=== PATIENT | female | born 1985 | race Caucasian/White ===

== ENCOUNTER 2016-11-17 19:06 | Emergency (ER) | payer OTHER ==
--- OUTSIDE RECORDS SUMMARY | 2016-11-17 19:29 | XMS REPORT | Continuity of Care Document ---
:1985 Author Organization [facility] ([facility]) Address [place] [address] Phone [phone] Care Team Providers Name Role Phone Provider, No-Primary Care Primary Care Provider Unavailable Source Comments This disclosure is being made pursuant to the Care Everywhere program, applicable federal and state laws, and may not contain all informaitonavailable regarding this patient.[facility] ([facility]) Active Allergies and Adverse Reactions No Known Allergies Current Medications Prescription Sig. Disp. Refills Start Date End Date Status ciprofloxacin 500 mg Take 1 Tab by mouth 20 Tab 0 05/27/2014 Active tablet 2 times daily. 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 Height 1.6 m (5' 3") 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 Weight 104.327 kg (230 lb) 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
[2016-11-17] MEDS ORDERED: ONDANSETRON HCL/PF 2 MG/ML VIAL IV ONE (19:35)
[2016-11-17] MEDS ORDERED: KETOROLAC TROMETHAMINE 60 MG/2 ML VIAL IM ONE ×2 (19:35→19:40)
[2016-11-17] MEDS ORDERED: NORMAL SALINE 1,000 ML IV ONE (19:35)
[2016-11-17] MEDS ORDERED: ONDANSETRON HCL/PF 2 MG/ML VIAL ONE (19:40)
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
[2016-11-17 19:54] LABS: Hematocrit 44.1 % (37.0-47.0); Hemoglobin 15.5 gm/dL (12.5-16.0); Mean Corpuscular Hemoglobin 30.2 pg (27-31); Mean Corpuscular Hgb Conc 35.1 g/dl (32-36); Mean Platelet Volume 10.8 fl (6.0-9.5); Neutrophil # 8.5 K/mm3 (1.3-6.0); Platelet Count 309 K/mm3 (150-450); Red Blood Count 5.13 M/mm3 (4.2-5.4); White Blood Count 12.7 K/mm3 (4.0-10.5)
[2016-11-17 20:08] LABS: Albumin * 3.8 gm/dl (3.4-5.0); Anion Gap 18.1 mmol/L (6.8-13.8); BUN/Creatinine Ratio 27.1 (9.0-21.6); Bilirubin, Total 0.5 mg/dL (0.0-1.1); Ca. Corrected For Albumin 9.6 mg/dL (8.4-10.2); Calcium * 9.8 mg/dL (7.9-10.9); Carbon Dioxide 20.5 mmol/L (24-32.6); Potassium 3.6 mmol/L (3.4-4.6); Total Protein 8.7 gm/dL (6.2-8.2)
[2016-11-17] MEDS ORDERED: KETOROLAC TROMETHAMINE 30 MG/ML VIAL IM ONE (20:13)
[2016-11-17] MEDS ORDERED: KETOROLAC TROMETHAMINE 30 MG/ML VIAL ONE (20:14)
[2016-11-17] MEDS ORDERED: KETOROLAC TROMETHAMINE 30 MG/ML VIAL IV ONE (20:17)
[2016-11-17] MEDS ORDERED: diphenhydrAMINE HCL 50 MG/ML VIAL IV ONE (20:41)
[2016-11-17] MEDS ORDERED: NALBUPHINE HCL 20 MG/ML AMPUL IV ONE (20:41)
[2016-11-17] MEDS ORDERED: METOCLOPRAMIDE HCL 5 MG/ML VIAL IV ONE (20:41)
[2016-11-17] MEDS ORDERED: diphenhydrAMINE HCL 50 MG/ML VIAL ONE (20:55)
[2016-11-17] MEDS ORDERED: METOCLOPRAMIDE HCL 5 MG/ML VIAL ONE (20:55)
[2016-11-17] MEDS ORDERED: NALBUPHINE HCL 20 MG/ML AMPUL ONE (20:55)
[2016-11-17 21:19] LABS: Urine Bilirubin 3 mg/dl (NEGATIVE); Urine Blood Negative /ul (NEGATIVE); Urine Ketone 5 mg/dL (NEGATIVE); Urine Nitrite Negative (NEGATIVE); Urine Protein 30 mg/dL (NEGATIVE); Urine Specific Gravity 1.025 SP.GR. (1.005-1.010); Urine Urobilinogen Normal (NORMAL); Urine pH 6.5 pH (5.0-7.0)
[2016-11-17 21:30] LABS: Urine Appearance Slightly Cloudy; Urine Bacteria 2+; Urine Color Yellow; Urine Hyaline Cast 0-5 /LPF; Urine Mucus Moderate - 2+; Urine RBC None Seen /hpf (0-5); Urine WBC 0-5 /hpf (0-5)
[2016-11-17] MEDS ORDERED: METOCLOPRAMIDE HCL 10 MG TABLET PO ONE (21:43)
[2016-11-17] MEDS ORDERED: diphenhydrAMINE HCL 25 MG CAPSULE PO ONE (21:43)
[2016-11-17] MEDS ORDERED: METOCLOPRAMIDE HCL 10 MG TABLET ONE (21:47)
[2016-11-17] MEDS ORDERED: diphenhydrAMINE HCL 25 MG CAPSULE ONE (21:47)
[2016-11-17 22:20] VITALS: BP 118/78
== END 2016-11-17 21:55 | disposition home or self-care (01) ==
LOC: ER 19:06
DX: R11.2 Nausea with vomiting, unspecified (principal); A08.4 Viral intestinal infection, unspecified; Z72.0 Tobacco use; F41.9 Anxiety disorder, unspecified; Z87.440 Personal history of urinary (tract) infections
CPT/HCPCS: 36415; 80053; 81001; 83605; 84703; 85025; 96374; 96375; 99284; J2405

== ENCOUNTER 2017-03-07 11:15 | Emergency (ER) | payer OTHER ==
[2017-03-07 11:31] VITALS: BP 143/92
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
[2017-03-07] MEDS ORDERED: KETOROLAC TROMETHAMINE 60 MG/2 ML VIAL IM ONE (11:39)
[2017-03-07] MEDS ORDERED: CYCLOBENZAPRINE HCL 10 MG TABLET PO ONE (11:54)
[2017-03-07] MEDS ORDERED: oxyCODONE HCL/ACETAMINOPHEN 1 TAB TABLET PO ONE (11:54)
[2017-03-07] MEDS ORDERED: CYCLOBENZAPRINE HCL 10 MG TABLET ONE (11:55)
[2017-03-07] MEDS ORDERED: oxyCODONE HCL/ACETAMINOPHEN 1 TAB TABLET ONE (11:55)
== END 2017-03-07 12:50 | disposition home or self-care (01) ==
LOC: ER 11:15
DX: M54.31 Sciatica, right side (principal); X58.XXXA Exposure to other specified factors, initial encounter; Y93.F9 Activity, other caregiving; Y92.121 Bathroom in nursing home as the place of occurrence of the external cause; Y99.0 Civilian activity done for income or pay; Z53.29 Procedure and treatment not carried out because of patient's decision for other reasons